=== PATIENT | male | born 1965 | race Caucasian/White ===

== ENCOUNTER 2016-05-27 11:16 | Inpatient (IN) | payer OTHER ==
[2016-05-27 14:05] VITALS: BMI 25.9
--- NOTE | 2016-05-27 17:34 | HP ---
CIWA Score - CIWA Score Nausea/Vomitin Muscle Tremors: 3 Anxiety: 3 Agitation: 3 Paroxysmal Sweats: 2 Orientation: 0-Oriented Tacttile Disturbances: 2-Mild Itch/Numbness/Burn Auditory Disturbances: 2-Mild Harshness/Frighten Visual Disturbances: 2-Mild Sensitivity Headache: 2-Mild CIWA-Ar Total Score: 22 Admission ROS BHS - HPI Chief Complaint: i need help to stop drinking alcohol Allergies/Adverse Reactions: Allergies Allergy/AdvReac Type Severity Reaction Status Date / Time Penicillins Allergy Severe Swelling Verified 05/27/16 16:59 lisinopril Allergy Swelling Verified 05/27/16 16:59 History of Present Illness: this 51 years old male with alcohol dependence,withdrawal symptom,last detox [facility] 01/22/16 to 01/26/16 syncope ptsd depression nicotine dependence longest period of sobriety 28 years Exam Limitations: No Limitations - Ebola screening Have you traveled outside of the country in the last 21 days: No Have you had contact with anyone from an Ebola affected area: No Have you been sick,other than usual withdrawal symptoms: No - Review of Systems Constitutional: Loss of Appetite, Malaise, Night Sweats, Changes in sleep, Weakness EENT: reports: Nose Congestion Respiratory: reports: No Symptoms reported Cardiac: reports: No Symptoms Reported GI: reports: Diarrhea, Nausea, Poor Appetite, Vomiting, Abdominal cramping : reports: No Symptoms Reported Musculoskeletal: reports: Back Pain, Muscle Pain Integumentary: reports: Dryness Neuro: reports: Headache, Tremors Endocrine: reports: No Symptoms Reported Hematology: reports: No Symptoms Reported Psychiatric: reports: No Sypmtoms Reported, Mood/Affect Appropiate, Orientated x3, Anxious, Depressed (ptsd) Patient History - Patient Medical History Hx Anemia: No Hx Asthma: No Hx Chronic Obstructive Pulmonary Disease (COPD): No Hx Cancer: No Hx Cardiac Disorders: No Hx Congestive Heart Failure: No Hx Hypertension: Yes (on meds) Hx Hypercholesterolemia: Yes (ON MEDS ) Hx Pacemaker: No HX Cerebrovascular Accident: No Hx Seizures: No Hx Dementia: No Hx Diabetes: Yes (NIDDM) Hx Gastrointestinal Disorders: No Hx Liver Disease: No Hx Genitourinary Disorders: No Hx Sexually Transmitted Disorders: No Hx Renal Disease (ESRD): No Hx Thyroid Disease: No Hx Human Immunodeficiency Virus (HIV): No (last 11/28 negative) Hx Hepatitis C: No Hx Depression: Yes Hx Suicide Attempt: No Hx Bipolar Disorder: No Hx Schizophrenia: No Other Medical History: no suicidal,no homicidal - Patient Surgical History Past Surgical History: No Hx Neurologic Surgery: No Hx Cataract Extraction: No Hx Cardiac Surgery: No Hx Lung Surgery: No Hx Breast Surgery: No Hx Breast Biopsy: No Hx Abdominal Surgery: No Hx Appendectomy: No Hx Cholecystectomy: No Hx Genitourinary Surgery: No Hx Section: No Hx Orthopedic Surgery: No Anesthesia Reaction: No - PPD History Previous Implant?: Yes Documented Results: Negative w/proof Implanted On Prior [facility] Admission?: Yes Date: 01/24/16 Results: 0 mm PPD to be Administered?: No - Smoking Cessation Smoking history: Current every day smoker Have you smoked in the past 12 months: Yes Aproximately how many cigarettes per day: 20 Hx Chewing Tobacco Use: No Initiated information on smoking cessation: Yes 'Breaking Loose' booklet given: 05/27/16 - Substance & Tx. History Hx Alcohol Use: Yes Hx Substance Use: No Substance Use Type: Alcohol Hx Substance Use Treatment: Yes (,10/29 to 01/26/16) - Substances Abused Alcohol-beer/vodka Route: Oral Frequency: Daily Amount used: 3-6 pks./fifth Age of first use: 12 Date of Last Use: 05/27/16 Family Disease History - Family Disease History Family Disease History: Diabetes: Father, Mother (), Heart Disease: Brother, Other: Sister (ETOH DEPENDENT ) Admission Physical Exam BHS - Vital Signs Vital Signs: Vital Signs - 24 hr 05/27/16 14:02 Temperature 98 F Pulse Rate 112 H Respiratory 20 Rate Blood Pressure 141/80 - Physical General Appearance: Yes: Moderate Distress, Tremorous, Irritable, Sweating, Anxious HEENTM: Yes: Hearing grossly Normal, Normal ENT Inspection, Pharynx Normal Respiratory: Yes: Lungs Clear, Normal Breath Sounds, No Respiratory Distress Neck: Yes: Within Normal Limits Breast: Yes: Within Normal Limits Cardiology: Yes: Tachycardia Abdominal: Yes: Within Normal Limits, Normal Bowel Sounds, Non Tender, Flat, Soft Genitourinary: Yes: Within Normal Limits Back: Yes: Muscle Spasm Musculoskeletal: Yes: Back pain, Muscle Pain Extremities: Yes: Within Normal Limits, Normal Range of Motion, Tremors Neurological: Yes: bulk fluids handler II-XII NML intact, Fully Oriented, Alert, Motor Strength 5/5 Integumentary: Yes: Dry Lymphatic: Yes: Within Normal Limits - Diagnostic (1) Alcohol dependence with uncomplicated withdrawal Current Visit: No Status: Chronic (2) Diabetes mellitus type 2, controlled Current Visit: No Status: Chronic Qualifiers: Diabetes mellitus complication status: without complication (3) Hyperlipemia Current Visit: No Status: Chronic (4) Hypertension Current Visit: No Status: Chronic (5) Nicotine dependence Current Visit: No Status: Chronic Qualifiers: Nicotine product type: cigarettes Substance use status: uncomplicated Qualified Code(s): F17.210 - Nicotine dependence, cigarettes, uncomplicated (6) PTSD (post-traumatic stress disorder) Current Visit: No Status: Chronic (7) Depression Current Visit: Yes Status: Acute Cleared for Admission [facility] - Detox or Rehab [facility] Level of Care: Medically Managed Detox Regimen/Protocol: Librium S Breath Alcohol Content Breath Alcohol Content: 0.105 Urine Drug Screen - Results Drug Screen Negative: Yes
[2016-05-27] MEDS ORDERED: IBUPROFEN 400 MG TABLET (FP) PO PRN (17:39)
[2016-05-27] MEDS ORDERED: ACETAMINOPHEN 325 MG TABLET (FP) PO PRN (17:39)
[2016-05-27] MEDS ORDERED: LOPERAMIDE HCL 2 MG CAPSULE PO PRN (17:39)
[2016-05-27] MEDS ORDERED: hydrOXYzine PAMOATE 50 MG CAPSULE (FP) PO PRN (17:39)
[2016-05-27] MEDS ORDERED: MAGNESIUM HYDROX 2400MG/30ML ORAL SUSPENSION 30 ML CUP PO PRN (17:39)
[2016-05-27] MEDS ORDERED: MAGNESIUM CITRATE 300 ML BOTTLE PO PRN (17:39)
[2016-05-27] MEDS ORDERED: MAG HYDROX/AL HYDROX/SIMETH 30 ML UNIT-DOSE CUP PO PRN (17:39)
[2016-05-27] MEDS ORDERED: MENTHOL/PHENOL 1 EACH UD MM PRN (17:39)
[2016-05-27] MEDS ORDERED: guaiFENesin/D-METHORPHAN HB 10 ML UNIT-DOSE CUPS PO PRN (17:39)
[2016-05-27] MEDS ORDERED: chlordiazePOXIDE HCL 25 MG CAPSULE PO PRN (17:39)
[2016-05-27] MEDS ORDERED: chlordiazePOXIDE HCL 25 MG CAPSULE PO ONE (18:45)
[2016-05-27] MEDS: NICOTINE 21 MG/24 HOURS TOPICAL PATCH TD SCH (19:43)
[2016-05-27] MEDS ORDERED: diphenhydrAMINE HCL 50 MG CAPSULE PO PRN (22:00)
[2016-05-27] MEDS: THIAMINE HCL 100 MG TABLET (FP) PO SCH (22:17)
[2016-05-27] MEDS: chlordiazePOXIDE HCL 25 MG CAPSULE PO SCH (22:17)
[2016-05-28 00:09] LABS: URINE APPEARANCE CLEAR; URINE BILIRUBIN NEGATIVE (NEGATIVE); URINE COLOR LTYELLOW; URINE GLUCOSE (UA) 3+ (NEGATIVE); URINE KETONE NEGATIVE (NEGATIVE); URINE LEUK ESTERASE NEGATIVE (NEGATIVE); URINE NITRITE NEGATIVE (NEGATIVE); URINE UROBILINOGEN NEGATIVE E.U./dl (0.2-1.0)
[2016-05-28 01:20] LABS: URINE BLOOD 1+ (NEGATIVE); URINE PROTEIN 2+ (NEGATIVE)
[2016-05-28 01:39] LABS: URINE BACTERIA RARE /hpf (NONE SEEN); URINE HYALINE CAST 1 /lpf; URINE RBC 1 /hpf (0-3)
[2016-05-28] MEDS: chlordiazePOXIDE HCL 25 MG CAPSULE PO SCH ×4 (05:46→22:17)
[2016-05-28] MEDS: ATORVASTATIN CA 40 MG TABLET (FP) PO SCH (10:19)
[2016-05-28] MEDS: sitaGLIPtin PHOSPHATE 100 MG TABLET (FP) PO SCH (10:19)
[2016-05-28] MEDS: ASPIRIN 81 MG CHEWABLE TABLETS PO SCH (10:19)
[2016-05-28] MEDS: metFORMIN HCL 500 MG TABLET (FP) PO SCH ×2 (10:19→17:42)
[2016-05-28] MEDS: NIFEdipine E.R. 30 MG TABLET (FP) PO SCH (10:19)
[2016-05-28] MEDS: PRENATAL VITAMINS W/ FOLIC ACID TABLET (FP) PO SCH (10:19)
[2016-05-28] MEDS: NICOTINE 21 MG/24 HOURS TOPICAL PATCH TD SCH (10:20)
[2016-05-28 10:31] LABS: MCH 32.5 pg (25.7-33.7); MCHC 33.7 g/dl (32.0-35.9); MEAN CELL VOLUME 96.6 fl (80-96); MEAN PLT VOLUME 8.1 fl (7.5-11.1); PLATELET COUNT 248 K/MM3 (134-434); RDW 15.5 % (11.9-15.9); WHITE BLOOD COUNT 6.8 K/mm3 (4.0-10.0)
[2016-05-28 10:55] LABS: SGOT/AST 138 U/L (15-37); SGPT/ALT 120 U/L (12-78)
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
[2016-05-28 11:07] LABS: ALK PHOS 89 U/L (45-117); ANION GAP 11 (8-16); BILIRUBIN,TOTAL 0.2 mg/dL (0.2-1.0); CALCIUM 8.6 mg/dL (8.5-10.1); CO2 26 mmol/L (21-32); COCKROFT - GAULT 110.5; CREATININE 0.8 mg/dL (0.7-1.3); GLUCOSE,RANDOM 207 mg/dL (74-106); TOT PROT 5.8 g/dl (6.4-8.2)
[2016-05-28] MEDS: SERTRALINE HCL 50 MG TABLET (FP) PO SCH (12:07)
[2016-05-28] MEDS: P-EPHED 60MG/TRIPROLIDI 2.5MG TABLET PO PRN (12:25)
[2016-05-28] MEDS ORDERED: cloNIDine HCL 0.1 MG TABLET PO ONE (15:01)
--- NOTE | 2016-05-28 15:05 | PN ---
S CIWA - CIWA Score Nausea/Vomitin-Mild Nausea/No Vomiting Muscle Tremors: 4-Moderate,w/Arms Extend Anxiety: 4-Mod. Anxious/Guarded Agitation: 2 Paroxysmal Sweats: 2 Orientation: 0-Oriented Tacttile Disturbances: 2-Mild Itch/Numbness/Burn Auditory Disturbances: 0-None Visual Disturbances: 0-None Headache: 3-Moderate CIWA-Ar Total Score: 18 BHS Progress Note (SOAP) Subjective: Body Aches, H/A, Tremors, Interrupted sleep. Objective: PT. A & O X 3, OBSERVED AMBULATING ON UNIT. 05/28/16 15:03 Vital Signs Temperature 98 F 05/28/16 13:21 Pulse Rate 106 H 05/28/16 13:21 Respiratory Rate 18 05/28/16 13:21 Blood Pressure 157/101 05/28/16 13:23 O2 Sat by Pulse Oximetry (%) Laboratory Last Values WBC 6.8 K/mm3 (4.0-10.0) 05/28/16 06:30 RBC 4.15 M/mm3 (4.00-5.60) 05/28/16 06:30 Hgb 13.5 GM/dL (11.7-16.9) 05/28/16 06:30 Hct 40.1 % (35.4-49) 05/28/16 06:30 MCV 96.6 fl (80-96) H 05/28/16 06:30 MCHC 33.7 g/dl (32.0-35.9) 05/28/16 06:30 RDW 15.5 % (11.9-15.9) 05/28/16 06:30 Plt Count 248 K/MM3 (134-434) 05/28/16 06:30 MPV 8.1 fl (7.5-11.1) D 05/28/16 06:30 Sodium 140 mmol/L (136-145) 05/28/16 06:30 Potassium 4.5 mmol/L (3.5-5.1) 05/28/16 06:30 Chloride 103 mmol/L (98-107) 05/28/16 06:30 Carbon Dioxide 26 mmol/L (21-32) 05/28/16 06:30 Anion Gap 11 (8-16) 05/28/16 06:30 BUN 10 mg/dL (7-18) D 05/28/16 06:30 Creatinine 0.8 mg/dL (0.7-1.3) 05/28/16 06:30 Creat Clearance w eGFR > 60 (>60) 05/28/16 06:30 POC Glucometer 167 UNITS (()) 05/28/16 05:47 Random Glucose 207 mg/dL (74-106) H 05/28/16 06:30 Calcium 8.6 mg/dL (8.5-10.1) 05/28/16 06:30 Total Bilirubin 0.2 mg/dL (0.2-1.0) D 05/28/16 06:30 AST 138 U/L (15-37) H D 05/28/16 06:30 ALT 120 U/L (12-78) H D 05/28/16 06:30 Alkaline Phosphatase 89 U/L (45-117) 05/28/16 06:30 Total Protein 5.8 g/dl (6.4-8.2) L 05/28/16 06:30 Albumin 3.0 g/dl (3.4-5.0) L 05/28/16 06:30 Urine Color Ltyellow 05/27/16 21:16 Urine Appearance Clear 05/27/16 21:16 Urine pH 5.0 (5.0-8.0) 05/27/16 21:16 Ur Specific [place] 1.008 (1.001-1.035) 05/27/16 21:16 Urine Protein 2+ (NEGATIVE) H 05/27/16 21:16 Urine Glucose (UA) 3+ (NEGATIVE) H 05/27/16 21:16 Urine Ketones Negative (NEGATIVE) 05/27/16 21:16 Urine Blood 1+ (NEGATIVE) H 05/27/16 21:16 Urine Nitrite Negative (NEGATIVE) 05/27/16 21:16 Urine Bilirubin Negative (NEGATIVE) 05/27/16 21:16 Urine Urobilinogen Negative E.U./dl (0.2-1.0) 05/27/16 21:16 Ur Leukocyte Esterase Negative (NEGATIVE) 05/27/16 21:16 Urine RBC 1 /hpf (0-3) 05/27/16 21:16 Urine WBC None /hpf (3-5) 05/27/16 21:16 Urine Bacteria Rare /hpf (NONE SEEN) 05/27/16 21:16 Hyaline Casts 1 /lpf 05/27/16 21:16 RPR Titer Nonreactive (NONREACTIVE) 05/28/16 06:30 LABS NOTED. Assessment: 05/28/16 15:04 WITHDRAWAL SYMPTOMS. Plan: CONTINUE DETOX. CLONIDINE, 01. MG X 1 FOR ELEVATED BP. CONTINUE TO MONITOR BP. ADVISED PATIENT TO FOLLOW-UP WITH GLOBAL MOBILITY SPECIALIST / REHAB MEDICAL PROVIDER AFTER DISCHARGE FROM DETOX FOR GENERAL MEDICAL ASSESSMENT AND FOR ABNORMAL ADMISSION LAB VALUES.
[2016-05-28] MEDS: traZODone HCL 50 MG TABLET (FP) PO SCH (22:15)
[2016-05-28] MEDS: THIAMINE HCL 100 MG TABLET (FP) PO SCH (22:17)
[2016-05-28] MEDS: QUEtiapine FUMARATE 100 MG TABLET (FP) PO SCH (22:18)
[2016-05-29] MEDS: chlordiazePOXIDE HCL 25 MG CAPSULE PO SCH ×3 (06:04→17:36)
[2016-05-29] MEDS: sitaGLIPtin PHOSPHATE 100 MG TABLET (FP) PO SCH (06:45)
[2016-05-29] MEDS: metFORMIN HCL 500 MG TABLET (FP) PO SCH ×2 (06:45→17:36)
[2016-05-29] MEDS: ASPIRIN 81 MG CHEWABLE TABLETS PO SCH (10:14)
[2016-05-29] MEDS: NIFEdipine E.R. 30 MG TABLET (FP) PO SCH ×2 (10:14→10:16)
[2016-05-29] MEDS: ATORVASTATIN CA 40 MG TABLET (FP) PO SCH (10:14)
[2016-05-29] MEDS: PRENATAL VITAMINS W/ FOLIC ACID TABLET (FP) PO SCH (10:14)
[2016-05-29] MEDS: SERTRALINE HCL 50 MG TABLET (FP) PO SCH (10:14)
[2016-05-29] MEDS: NICOTINE 21 MG/24 HOURS TOPICAL PATCH TD SCH (10:15)
[2016-05-29] MEDS: P-EPHED 60MG/TRIPROLIDI 2.5MG TABLET PO PRN ×2 (10:16→17:41)
--- NOTE | 2016-05-29 11:23 | PN ---
S CIWA - CIWA Score Nausea/Vomitin Muscle Tremors: 4-Moderate,w/Arms Extend Anxiety: 4-Mod. Anxious/Guarded Agitation: 4-Moderately Restless Paroxysmal Sweats: 3 Orientation: 0-Oriented Tacttile Disturbances: 0-None Auditory Disturbances: 0-None Visual Disturbances: 0-None Headache: 0-None Present CIWA-Ar Total Score: 18 BHS Progress Note (SOAP) Subjective: nausea, sweats, interrupted sleep, anxiety, tremors Objective: 05/29/16 11:21 Vital Signs 05/29/16 05/29/16 05/29/16 03:30 06:08 10:21 Temperature 95.8 F L 98 F Pulse Rate 96 H 96 H Respiratory 18 18 20 Rate Blood Pressure 122/82 110/74 Laboratory Tests 05/27/16 05/28/16 05/28/16 21:16 05:47 06:30 WBC 6.8 RBC 4.15 Hgb 13.5 Hct 40.1 MCV 96.6 H MCHC 33.7 RDW 15.5 Plt Count 248 MPV 8.1 D Sodium Potassium Chloride Carbon Dioxide Anion Gap BUN Creatinine Creat Clearance w eGFR POC Glucometer 167 Random Glucose Calcium Total Bilirubin AST ALT Alkaline Phosphatase Total Protein Albumin Urine Color Ltyellow Urine Appearance Clear Urine pH 5.0 Ur Specific [place] 1.008 Urine Protein 2+ H Urine Glucose (UA) 3+ H Urine Ketones Negative Urine Blood 1+ H Urine Nitrite Negative Urine Bilirubin Negative Urine Urobilinogen Negative Ur Leukocyte Esterase Negative Urine RBC 1 Urine WBC None Urine Bacteria Rare Hyaline Casts 1 RPR Titer 05/28/16 05/28/16 05/28/16 06:30 06:30 16:38 WBC RBC Hgb Hct MCV MCHC RDW Plt Count MPV Sodium 140 Potassium 4.5 Chloride 103 Carbon Dioxide 26 Anion Gap 11 BUN 10 D Creatinine 0.8 Creat Clearance w eGFR > 60 POC Glucometer 291 Random Glucose 207 H Calcium 8.6 Total Bilirubin 0.2 D AST 138 H D ALT 120 H D Alkaline Phosphatase 89 Total Protein 5.8 L Albumin 3.0 L Urine Color Urine Appearance Urine pH Ur Specific [place] Urine Protein Urine Glucose (UA) Urine Ketones Urine Blood Urine Nitrite Urine Bilirubin Urine Urobilinogen Ur Leukocyte Esterase Urine RBC Urine WBC Urine Bacteria Hyaline Casts RPR Titer Nonreactive 05/29/16 06:02 WBC RBC Hgb Hct MCV MCHC RDW Plt Count MPV Sodium Potassium Chloride Carbon Dioxide Anion Gap BUN Creatinine Creat Clearance w eGFR POC Glucometer 185 Random Glucose Calcium Total Bilirubin AST ALT Alkaline Phosphatase Total Protein Albumin Urine Color Urine Appearance Urine pH Ur Specific [place] Urine Protein Urine Glucose (UA) Urine Ketones Urine Blood Urine Nitrite Urine Bilirubin Urine Urobilinogen Ur Leukocyte Esterase Urine RBC Urine WBC Urine Bacteria Hyaline Casts RPR Titer tachycardia,hperglycemia, elevated lfts, hypoalbuminemia Assessment: 05/29/16 11:22 withdrawal sx, malnutirtion 2/2 drug use, diabetes Plan: cont detox, fluids, dietary advice given, encourage ambulation
--- NOTE | 2016-05-29 14:32 | EKG ---
Test Reason : Blood Pressure : / mmHG Vent. Rate : 105 BPM Atrial Rate : 105 BPM P-R Int : 118 ms QRS Dur : 080 ms QT Int : 338 ms P-R-T Axes : 042 002 027 degrees QTc Int : 446 ms SINUS TACHYCARDIA OTHERWISE NORMAL ECG NO PREVIOUS ECGS AVAILABLE BASELINE ARTIFACT Confirmed by DAVID KEARNS, BRUCE ([id number] on 05/29/2016 2:31:35 PM Referred By: Confirmed By:BRUCE HERNANDEZ MD
--- NOTE | 2016-05-29 18:34 | PN ---
BHS Progress Note Note: bgm 322,bgm monitoring achs,on insulin coverage
[2016-05-29] MEDS: THIAMINE HCL 100 MG TABLET (FP) PO SCH (22:17)
[2016-05-29] MEDS: traZODone HCL 50 MG TABLET (FP) PO SCH (22:17)
[2016-05-29] MEDS: QUEtiapine FUMARATE 100 MG TABLET (FP) PO SCH (22:17)
[2016-05-29] MEDS: INSULIN SLIDING SCALE (NOVOLOG) 1 VIAL SQ SCH (23:08)
[2016-05-29] MEDS: chlordiazePOXIDE 5 MG CAPSULE PO SCH (23:18)
[2016-05-30] MEDS: chlordiazePOXIDE 5 MG CAPSULE PO SCH ×3 (05:53→17:03)
[2016-05-30] MEDS ORDERED: INSULIN (NOVOLOG) ASPART 100 UNITS/ML 10ML VIAL ONE ×4 (07:30→21:48)
[2016-05-30] MEDS: sitaGLIPtin PHOSPHATE 100 MG TABLET (FP) PO SCH (07:32)
[2016-05-30] MEDS: metFORMIN HCL 500 MG TABLET (FP) PO SCH ×2 (07:32→17:03)
[2016-05-30] MEDS: INSULIN SLIDING SCALE (NOVOLOG) 1 VIAL SQ SCH ×4 (07:33→22:13)
[2016-05-30] MEDS: NICOTINE 21 MG/24 HOURS TOPICAL PATCH TD SCH (10:04)
[2016-05-30] MEDS: ASPIRIN 81 MG CHEWABLE TABLETS PO SCH (10:05)
[2016-05-30] MEDS: ATORVASTATIN CA 40 MG TABLET (FP) PO SCH (10:05)
[2016-05-30] MEDS: PRENATAL VITAMINS W/ FOLIC ACID TABLET (FP) PO SCH (10:05)
[2016-05-30] MEDS: SERTRALINE HCL 50 MG TABLET (FP) PO SCH (10:05)
[2016-05-30] MEDS: NIFEdipine E.R. 30 MG TABLET (FP) PO SCH (10:06)
--- NOTE | 2016-05-30 13:56 | PN ---
BHS Progress Note (SOAP) Subjective: Sweating,interrupted sleep,restless Objective: 05/30/16 13:55 Vital Signs - 8 hr 05/30/16 05/30/16 05/30/16 06:22 09:21 13:08 Temperature 96.0 F L 96.2 F L 97.3 F L Pulse Rate 89 105 H 92 H Respiratory 18 20 20 Rate Blood Pressure 125/77 104/71 138/84 Laboratory Tests 05/27/16 05/27/16 05/28/16 17:22 21:16 05:47 WBC RBC Hgb Hct MCV MCHC RDW Plt Count MPV Sodium Potassium Chloride Carbon Dioxide Anion Gap BUN Creatinine Creat Clearance w eGFR POC Glucometer 225 167 Random Glucose Calcium Total Bilirubin AST ALT Alkaline Phosphatase Total Protein Albumin Urine Color Ltyellow Urine Appearance Clear Urine pH 5.0 Ur Specific [place] 1.008 Urine Protein 2+ H Urine Glucose (UA) 3+ H Urine Ketones Negative Urine Blood 1+ H Urine Nitrite Negative Urine Bilirubin Negative Urine Urobilinogen Negative Ur Leukocyte Esterase Negative Urine RBC 1 Urine WBC None Urine Bacteria Rare Hyaline Casts 1 RPR Titer 05/28/16 05/28/16 05/28/16 06:30 06:30 06:30 WBC 6.8 RBC 4.15 Hgb 13.5 Hct 40.1 MCV 96.6 H MCHC 33.7 RDW 15.5 Plt Count 248 MPV 8.1 D Sodium 140 Potassium 4.5 Chloride 103 Carbon Dioxide 26 Anion Gap 11 BUN 10 D Creatinine 0.8 Creat Clearance w eGFR > 60 POC Glucometer Random Glucose 207 H Calcium 8.6 Total Bilirubin 0.2 D AST 138 H D ALT 120 H D Alkaline Phosphatase 89 Total Protein 5.8 L Albumin 3.0 L Urine Color Urine Appearance Urine pH Ur Specific [place] Urine Protein Urine Glucose (UA) Urine Ketones Urine Blood Urine Nitrite Urine Bilirubin Urine Urobilinogen Ur Leukocyte Esterase Urine RBC Urine WBC Urine Bacteria Hyaline Casts RPR Titer Nonreactive 05/28/16 05/29/16 05/29/16 16:38 06:02 16:00 WBC RBC Hgb Hct MCV MCHC RDW Plt Count MPV Sodium Potassium Chloride Carbon Dioxide Anion Gap BUN Creatinine Creat Clearance w eGFR POC Glucometer 291 185 322 Random Glucose Calcium Total Bilirubin AST ALT Alkaline Phosphatase Total Protein Albumin Urine Color Urine Appearance Urine pH Ur Specific [place] Urine Protein Urine Glucose (UA) Urine Ketones Urine Blood Urine Nitrite Urine Bilirubin Urine Urobilinogen Ur Leukocyte Esterase Urine RBC Urine WBC Urine Bacteria Hyaline Casts RPR Titer 05/29/16 05/30/16 05/30/16 21:27 05:52 11:10 WBC RBC Hgb Hct MCV MCHC RDW Plt Count MPV Sodium Potassium Chloride Carbon Dioxide Anion Gap BUN Creatinine Creat Clearance w eGFR POC Glucometer 322 285 346 Random Glucose Calcium Total Bilirubin AST ALT Alkaline Phosphatase Total Protein Albumin Urine Color Urine Appearance Urine pH Ur Specific [place] Urine Protein Urine Glucose (UA) Urine Ketones Urine Blood Urine Nitrite Urine Bilirubin Urine Urobilinogen Ur Leukocyte Esterase Urine RBC Urine WBC Urine Bacteria Hyaline Casts RPR Titer labs noted Assessment: 05/30/16 13:55 Withdrawal sx. Plan: Continue detox
[2016-05-30] MEDS: traZODone HCL 50 MG TABLET (FP) PO SCH (22:12)
[2016-05-30] MEDS: THIAMINE HCL 100 MG TABLET (FP) PO SCH (22:12)
[2016-05-30] MEDS: chlordiazePOXIDE HCL 10 MG CAPSULE PO SCH (22:12)
[2016-05-30] MEDS: QUEtiapine FUMARATE 100 MG TABLET (FP) PO SCH (22:13)
[2016-05-31] MEDS: chlordiazePOXIDE HCL 10 MG CAPSULE PO SCH (05:24)
[2016-05-31 06:20] VITALS: BP 136/90; PULSE 96; TEMP 96.8
[2016-05-31] MEDS ORDERED: INSULIN (NOVOLOG) ASPART 100 UNITS/ML 10ML VIAL ONE (07:20)
[2016-05-31] MEDS: metFORMIN HCL 500 MG TABLET (FP) PO SCH (07:34)
[2016-05-31] MEDS: INSULIN SLIDING SCALE (NOVOLOG) 1 VIAL SQ SCH (07:34)
[2016-05-31] MEDS: sitaGLIPtin PHOSPHATE 100 MG TABLET (FP) PO SCH (07:34)
--- NOTE | 2016-05-31 13:46 | DS ---
[facility] Detox Discharge Summary Admission Date: 05/27/16 Discharge Date: 05/31/16 - History Present History: Alcohol Dependence, Cannabis Dependence Pertinent Past History: Type II DM HTN Hyperlipidemia - Physical Exam Results Vital Signs: Vital Signs Temperature 96.8 F L 05/31/16 06:20 Pulse Rate 96 H 05/31/16 06:20 Respiratory Rate 18 05/31/16 06:20 Blood Pressure 136/90 05/31/16 06:20 O2 Sat by Pulse Oximetry (%) Pertinent Admission Physical Exam Findings: Withdrawal sx. Laboratory Last Values WBC 6.8 K/mm3 (4.0-10.0) 05/28/16 06:30 RBC 4.15 M/mm3 (4.00-5.60) 05/28/16 06:30 Hgb 13.5 GM/dL (11.7-16.9) 05/28/16 06:30 Hct 40.1 % (35.4-49) 05/28/16 06:30 MCV 96.6 fl (80-96) H 05/28/16 06:30 MCHC 33.7 g/dl (32.0-35.9) 05/28/16 06:30 RDW 15.5 % (11.9-15.9) 05/28/16 06:30 Plt Count 248 K/MM3 (134-434) 05/28/16 06:30 MPV 8.1 fl (7.5-11.1) D 05/28/16 06:30 Sodium 140 mmol/L (136-145) 05/28/16 06:30 Potassium 4.5 mmol/L (3.5-5.1) 05/28/16 06:30 Chloride 103 mmol/L (98-107) 05/28/16 06:30 Carbon Dioxide 26 mmol/L (21-32) 05/28/16 06:30 Anion Gap 11 (8-16) 05/28/16 06:30 BUN 10 mg/dL (7-18) D 05/28/16 06:30 Creatinine 0.8 mg/dL (0.7-1.3) 05/28/16 06:30 Creat Clearance w eGFR > 60 (>60) 05/28/16 06:30 POC Glucometer 255 UNITS (()) 05/31/16 05:22 Random Glucose 207 mg/dL (74-106) H 05/28/16 06:30 Calcium 8.6 mg/dL (8.5-10.1) 05/28/16 06:30 Total Bilirubin 0.2 mg/dL (0.2-1.0) D 05/28/16 06:30 AST 138 U/L (15-37) H D 05/28/16 06:30 ALT 120 U/L (12-78) H D 05/28/16 06:30 Alkaline Phosphatase 89 U/L (45-117) 05/28/16 06:30 Total Protein 5.8 g/dl (6.4-8.2) L 05/28/16 06:30 Albumin 3.0 g/dl (3.4-5.0) L 05/28/16 06:30 Urine Color Ltyellow 05/27/16 21:16 Urine Appearance Clear 05/27/16 21:16 Urine pH 5.0 (5.0-8.0) 05/27/16 21:16 Ur Specific [place] 1.008 (1.001-1.035) 05/27/16 21:16 Urine Protein 2+ (NEGATIVE) H 05/27/16 21:16 Urine Glucose (UA) 3+ (NEGATIVE) H 05/27/16 21:16 Urine Ketones Negative (NEGATIVE) 05/27/16 21:16 Urine Blood 1+ (NEGATIVE) H 05/27/16 21:16 Urine Nitrite Negative (NEGATIVE) 05/27/16 21:16 Urine Bilirubin Negative (NEGATIVE) 05/27/16 21:16 Urine Urobilinogen Negative E.U./dl (0.2-1.0) 05/27/16 21:16 Ur Leukocyte Esterase Negative (NEGATIVE) 05/27/16 21:16 Urine RBC 1 /hpf (0-3) 05/27/16 21:16 Urine WBC None /hpf (3-5) 05/27/16 21:16 Urine Bacteria Rare /hpf (NONE SEEN) 05/27/16 21:16 Hyaline Casts 1 /lpf 05/27/16 21:16 RPR Titer Nonreactive (NONREACTIVE) 05/28/16 06:30 labs noted - Treatment Hospital Course: Detox Protocol Followed, Detoxed Safely, Responded well, Discharged Condition Good, Rehab Referral Accepted Patient has Accepted a Rehab Referral to: [facility] IOP - Medication Discharge Medications: Ambulatory Orders Atorvastatin Ca [Lipitor] 40 mg PO DAILY 01/22/16 Metformin HCl [Glucophage] 1,000 mg PO BID 01/22/16 Sertraline HCl [Zoloft -] 50 mg PO HS #30 tablet 01/23/16 Trazodone HCl [Desyrel -] 50 mg PO HS #30 tablet 01/23/16 Aspirin [ASA -] 81 mg PO DAILY 05/27/16 Multivitamins [Tab-A-Vit -] 1 tab PO DAILY 05/27/16 Nifedipine ER [Procardia Xl -] 30 mg PO DAILY 05/27/16 Quetiapine Fumarate [Seroquel -] 100 mg PO HS 05/27/16 Sitagliptin Phosphate [Januvia -] 100 mg PO DAILY 05/27/16 Quetiapine Fumarate [Seroquel] 100 mg PO HS #30 tablet 05/28/16 Sertraline HCl [Zoloft -] 50 mg PO DAILY #30 tablet 05/28/16 Trazodone HCl 100 mg PO HS #30 tablet 05/28/16 - Diagnosis (1) Alcohol dependence with uncomplicated withdrawal Status: Acute (2) Insomnia Status: Acute (3) Nicotine dependence Status: Acute Qualifiers: Nicotine product type: cigarettes Substance use status: uncomplicated Qualified Code(s): F17.210 - Nicotine dependence, cigarettes, uncomplicated (4) Cannabis dependence, uncomplicated Status: Chronic (5) Diabetes mellitus type 2, controlled Status: Chronic Qualifiers: Diabetes mellitus complication status: without complication Diabetes mellitus intermediate manager insulin use: without nursing home use Qualified Code(s): E11.9 - Type 2 diabetes mellitus without complications (6) Hyperlipemia Status: Chronic (7) Hypertension Status: Chronic (8) PTSD (post-traumatic stress disorder) Status: Chronic - AMA Did Patient Leave Against Medical Advice: No
== END 2016-05-31 08:52 | disposition home or self-care (01) | DRG 775 ==
LOC: YASAS 11:16 → Y3N 18:19
PROVIDERS: ADMIT Internal Medicine; ATTEND Internal Medicine
PROC: HZ2ZZZZ Detoxification Services for Substance Abuse Treatment (ICD-10-PCS; principal; 2016-05-27)
DX: F10.230 Alcohol dependence with withdrawal, uncomplicated (principal); F12.20 Cannabis dependence, uncomplicated; F17.210 Nicotine dependence, cigarettes, uncomplicated; F43.10 Post-traumatic stress disorder, unspecified; G47.00 Insomnia, unspecified; E11.65 Type 2 diabetes mellitus with hyperglycemia; E78.5 Hyperlipidemia, unspecified; E88.09 Other disorders of plasma-protein metabolism, not elsewhere classified; I10 Essential (primary) hypertension; R00.0 Tachycardia, unspecified; R94.5 Abnormal results of liver function studies
CPT/HCPCS: 36415; 80053; 81003; 81015; 85027; 86593; 93005; 93010